=== PATIENT | female | born 1950 | race Caucasian/White ===

== ENCOUNTER 2020-08-19 18:46 | Emergency (ER) | payer OTHER ==
[~2020-08-19] VITALS: Ht 160 cm; Wt 81.7 kg
[2020-08-19 19:08] LABS: ABSOLUTE NEUTROPHILS 5.4 thou/uL (1.4-8.2); BASOPHILS 0.8 % (0.0-2.0); HEMATOCRIT 35.3 % (37.0-47.0); HEMOGLOBIN 12.1 gm/dL (12.0-15.0); LYMPHOCYTES 26.8 % (24.0-44.0); MCH 29.3 pg (26.0-34.0); MCHC 34.2 g/dL (28.0-37.0); MCV 85.7 fL (80.0-100.0); MONOCYTES 8.1 % (1.0-8.0); PLATELET COUNT 277 thou/uL (150-400); POLYS 61.3 % (36.0-66.0); RBC 4.12 mil/uL (4.20-5.00); RDW 15.4 % (10.5-14.5); WBC 8.8 thou/uL (4.0-11.0)
[2020-08-19] MEDS ORDERED: CARBAMAZEPINE100 M2 PO (19:16)
[2020-08-19] MEDS ORDERED: SIMBRINZA 1%-0.28 ML OPHTHALMIC (19:16)
[2020-08-19] MEDS ORDERED: ESCITALOPRAM OX20 MG PO (19:17)
[2020-08-19] MEDS ORDERED: IPRAT-ALBUT 0.5-3 ML INH (19:17)
[2020-08-19] MEDS ORDERED: FUROSEMIDE 20 M20 MG PO (19:17)
[2020-08-19] MEDS ORDERED: LEVOFLOXACIN750 MG PO ×2 (19:18→19:19)
[2020-08-19] MEDS ORDERED: LATANOPROST 0.7.5 ML EA. EYE (19:18)
[2020-08-19] MEDS ORDERED: LORAZEPAM 0.50.5 MG PO (19:19)
[2020-08-19] MEDS ORDERED: INDERAL LA120 MG PO (19:20)
[2020-08-19] MEDS ORDERED: KLOR-CON M2020 MEQ PO (19:20)
[2020-08-19] MEDS ORDERED: LOSARTAN POTASS50 MG PO (19:20)
[2020-08-19] MEDS ORDERED: QUETIAPINE FUMA25 MG PO (19:21)
[2020-08-19] MEDS ORDERED: ROSUVASTATIN CA10 MG PO (19:21)
[2020-08-19] MEDS ORDERED: SEROQUEL 100 M100 MG PO (19:21)
[2020-08-19] MEDS ORDERED: VITAMIN D21250 MCG PO (19:22)
[2020-08-19 19:33] LABS: ANION GAP 9 mmol/L (7-16); BUN 17 mg/dL (7-18); CALCIUM 8.9 mg/dL (8.5-10.1); CHLORIDE 102 mmol/L (98-107); CO2 29 mmol/L (21-32); CREATININE 1.1 mg/dL (0.6-1.0); GLUCOSE 105 mg/dL (74-106); POTASSIUM 3.2 mmol/L (3.5-5.1); SODIUM 140 mmol/L (136-145)
[2020-08-19 19:36] LABS: ALBUMIN 3.2 g/dL (3.4-5.0); DIRECT BILIRUBIN < 0.1 mg/dL (<0.1-0.2); MAGNESIUM 1.5 mg/dL (1.8-2.4); PHOSPHORUS 2.8 mg/dL (2.6-4.7); SALICYLATE < 2.8 mg/dL (2.8-20.0); SGOT 13 U/L (15-37); SGPT 28 U/L (14-59); TOTAL BILIRUBIN 0.2 mg/dL (0.2-1.0); TROPONIN-I <0.06 ng/mL (<0.06)
[2020-08-19 19:49] LABS: URINE BILIRUBIN NEGATIVE (Negative); URINE BLOOD NEGATIVE (Negative); URINE CLARITY CLEAR; URINE COLOR YELLOW; URINE GLUCOSE-RANDOM* NEGATIVE (Negative); URINE KETONES NEGATIVE (Negative); URINE LEUKOCYTES-REFLEX NEGATIVE (Negative); URINE NITRITE-REFLEX NEGATIVE (Negative); URINE PROTEIN (DIPSTICK) NEGATIVE (Negative); URINE SPECIFIC GRAVITY >= 1.030 (1.005-1.035); URINE UROBILINOGEN 0.2 E.U./dl (0.2-1.0)
[2020-08-19 19:58] LABS: AMP/METHAMP Negative (Negative); BARBITURATES Negative (Negative); BENZODIAZEPINES Negative (Negative); COCAINE Negative (Negative); METHADONE Negative (Negative); OPIATES POSITIVE (Negative); PCP Negative (Negative)
[2020-08-20 04:48] VITALS: BP 114/58
[2020-08-20 05:33] VITALS: BP 114/58
[2020-08-20] MEDS ORDERED: HYDROCHLOROTH12.5 M2 PO (06:00)
== END 2020-08-20 05:34 | disposition still patient (30) ==
LOC: ER 18:46
PROVIDERS: Emergency Medicine
DX: R45.1 Restlessness and agitation (principal); F03.90 Unspecified dementia, unspecified severity, without behavioral disturbance, psychotic disturbance, mood disturbance, and anxiety; R41.82 Altered mental status, unspecified; J44.9 Chronic obstructive pulmonary disease, unspecified; Z79.899 Other long term (current) drug therapy; Z79.2 Long term (current) use of antibiotics; Z87.891 Personal history of nicotine dependence; Z88.0 Allergy status to penicillin